=== PATIENT | male | born 1990 | race African-American/Black ===

== ENCOUNTER 2018-09-20 09:13 | Emergency (ER) | payer SELFPAY ==
[~2018-09-20] VITALS: Ht 172.7 cm; Wt 81.6 kg
[~2018-09-20 09:13] MED LIST: HYDR-3165 PO
[2018-09-20 09:15] VITALS: BP 139/71
[2018-09-20] MEDS ORDERED: CYCL-331 PO (09:55)
[2018-09-20] MEDS ORDERED: NAPR-683 PO (09:55)
--- NOTE | 2018-09-20 09:55 | PHYS DOC ---
Past History Past Medical History: No Pertinent History, Other Past Surgical History: No Surgical History Smoking: Chew, Quit Less Than 1 Year Alcohol Use: Occasionally Drug Use: None Adult General Chief Complaint Chief Complaint: LOWER EXTREMITY SWELLING HPI HPI Patient is a 28 year old male who presents with pain in right thigh for 8 days. Patient states he had a charley horse 8 days ago and since then has pain in right thigh as a constant pain that getting worse with movement or sitting down for a long time and plays with his phone. Patient denies injury and focal neurodeficit but decided because of pain is not able to walk. Patient significant dates he had a spot on back of his thigh that is painful. Patient states he does not work and stays at home but asking for excuse for his probation. Review of Systems Review of Systems Constitutional: Denies fever or chills [] Eyes: Denies change in visual acuity, redness, or eye pain [] HENT: Denies nasal congestion or sore throat [] Respiratory: Denies cough or shortness of breath [] Cardiovascular: No additional information not addressed in HPI [] GI: Denies abdominal pain, nausea, vomiting, bloody stools or diarrhea [] : Denies dysuria or hematuria [] Musculoskeletal: Denies back pain or joint pain [] Integument: Denies rash or skin lesions [] Neurologic: Denies headache, focal weakness or sensory changes [] Endocrine: Denies polyuria or polydipsia [] All other systems were reviewed and found to be within normal limits, except as documented in this note. Allergies Allergies Allergies Coded Allergies Type Severity Reaction Last Updated Verified No Known Drug Allergies 05/10/14 No Physical Exam Physical Exam Constitutional: Well nourished, no acute distress, non-toxic appearance. [] HENT: Normocephalic, atraumatic Eyes: PERRLA, EOMI, conjunctiva normal, no discharge. [] Neck: Normal range of motion, no tenderness, supple, no stridor. [] Cardiovascular:Heart rate regular rhythm, no murmur [] Lungs & Thorax: Bilateral breath sounds clear to auscultation [] Abdomen: Bowel sounds normal, soft, no tenderness, no masses, no pulsatile masses. [] Skin: Warm, dry, no erythema, no rash. [] Back: No tenderness, no CVA tenderness. [] Extremities: Right thigh without deformity or tenderness or change of color or painful area,,no tenderness, no cyanosis, no clubbing, ROM intact, no edema. [] Neurologic: Alert and oriented X 3, normal motor function, normal sensory function, no focal deficits noted. [] Psychologic: Affect anxious, looks under influence of drugs Current Patient Data Vital Signs Vital Signs Date Time Temp Pulse Resp B/P (MAP) Pulse Ox O2 Delivery O2 Flow Rate FiO2 09/20/18 09:15 98.5 65 18 97 Room Air EKG EKG [] Radiology/Procedures Radiology/Procedures [] Course & Med Decision Making Course & Med Decision Making Evaluation of patient in ER showed 28-year-old male patient with complaining of right thigh pain for 8 days after charley horse. Patient had physical exam and informed that he does not need to have x-ray or ultrasound regarding muscle pain. Dragon Disclaimer Dragon Disclaimer This electronic medical record was generated, in whole or in part, using a voice recognition dictation system. Departure Departure: Impression: Primary Impression: Muscle strain Disposition: HOME, SELF-CARE (at [id number]) Condition: STABLE Referrals: PCP,BALBINA (PCP) Patient Instructions: Muscle Strain Additional Instructions: Drink plenty of liquids Follow-up with your primary care physician in 3-5 days Return to ER if not getting better Apply ice on the affected area Scripts Naproxen (NAPROSYN) 500 Mg Tablet 500 MG PO BID for pain, #20 TAB Prov: SHAUN JUNG MD 09/20/18 Cyclobenzaprine Hcl (CYCLOBENZAPRINE HCL) 10 Mg Tablet 1 TAB PO TID for pain, #30 TAB Prov: SHAUN JUNG MD 09/20/18 SHAUN JUNG MD Sep 20, 2018 09:55
== END 2018-09-20 10:07 | disposition home or self-care (01) ==
LOC: ER 09:13
DX: S76.211A Strain of adductor muscle, fascia and tendon of right thigh, initial encounter (principal); Z87.891 Personal history of nicotine dependence; X58.XXXA Exposure to other specified factors, initial encounter; Y93.89 Activity, other specified; Y92.89 Other specified places as the place of occurrence of the external cause; Y99.8 Other external cause status
CPT/HCPCS: 99283